=== PATIENT | female | born 1975 | race Caucasian/White ===

== ENCOUNTER 2020-09-28 15:28 | Inpatient (IN) | payer MEDICAID, OTHER ==
[~2020-09-28] VITALS: Ht 157.5 cm; Wt 108.9 kg
[2020-09-28] MEDS ORDERED: ACETAMINOPHEN 325MG TABLET PO ONE (16:15)
[2020-09-28] MEDS ORDERED: ONDANSETRON 4MG ODT PO ONE (16:15)
[2020-09-28 16:42] LABS: CLARITY URINE CLOUDY (CLEAR); COLOR URINE YELLOW (YELLOW); KETONES URINE TRACE (NEGATIVE); LEUKOCYTE ESTERASE URINE 2+ (NEGATIVE); NITRITE URINE NEGATIVE (NEGATIVE); OCCULT BLOOD URINE NEGATIVE (NEGATIVE); PROTEIN URINE TRACE (NEGATIVE); SPECIFIC GRAVITY URINE 1.026 (1.005-1.030); UROBILINOGEN URINE 0.2 E.U./dL (0.2-1.0)
[2020-09-28 17:45] LABS: EOSINOPHILS % 3.5 % (0.0-5.0); HEMOGLOBIN. 11.9 g/dL (12.0-16.0); LYMPHOCYTES % 35.5 % (20.0-50.0); MEAN CORPUSCULAR VOLUME 84.9 fL (81.0-99.0); MEAN PLATELET VOLUME 8.2 fl (7.4-10.4); MONOCYTES % 6.6 % (2.0-8.0); NEUTROPHILS % 53.4 % (40.0-76.0); PLATELET 324 x1000/uL (130-400); RED BLOOD CELL COUNT 4.24 mill/uL (4.2-5.4); RED CELL DISTRIBUTION WIDTH 14.5 % (11.6-14.6)
[2020-09-28 17:53] LABS: CHLORIDE 109 mEq/L (98-107); PROTHROMBIN TIME 10.7 sec (9.6-11.0)
[2020-09-28] MEDS ORDERED: CEFTRIAXONE 1 G PREMIX 50 ML IV ONE (19:00)
[2020-09-28] MEDS ORDERED: MORPHINE SULFATE 4 MG/ML CPJ (NOT FOR IM USE) IV STA (20:23)
[2020-09-28] MEDS ORDERED: ONDANSETRON HCL 4MG/2ML INJ IV STA (20:23)
[2020-09-28 23:51] VITALS: BP 149/68
[2020-09-29] VITALS: BP 125/61
[2020-09-29] MEDS ORDERED: ENOXAPARIN 40MG/0.4ML SYR SUBCUT SCH ×2 (01:30→09:00)
[2020-09-29] MEDS ORDERED: ACETAMINOPHEN 325MG TABLET PO PRN (01:30)
[2020-09-29] MEDS ORDERED: ONDANSETRON HCL 4MG/2ML INJ IV PRN (01:30)
[2020-09-29] MEDS ORDERED: CLONIDINE 0.1MG TABLET PO PRN (01:30)
[2020-09-29] MEDS ORDERED: NALOXONE HCL 0.4MG/ML VIAL IV PRN (01:45)
[2020-09-29] MEDS: DEXT 5%/0.45% NACL 1000ML 1,000 ML IV SCH ×2 (02:43→15:11)
[2020-09-29] MEDS: AMLODIPINE 10MG TABLET PO SCH ×2 (02:56→12:26)
[2020-09-29] MEDS: HYDROMORPHONE HCL/PF 2MG/ML CPJ IV PRN ×2 (02:57→15:06)
[2020-09-29] MEDS ORDERED: LEVOFLOXACIN 500MG PREMIX 100 ML IV SCH (03:00)
[2020-09-29 04:00] VITALS: BP 143/62
[2020-09-29] MEDS: METRONIDAZOLE 500 MG PREMIX 100 ML IV SCH ×2 (05:48→15:00)
[2020-09-29 08:00] VITALS: BP 152/51
[2020-09-29 12:00] VITALS: BP 119/55
[2020-09-29 15:39] VITALS: BP 119/55
== END 2020-09-29 17:44 | disposition home or self-care (01) ==
LOC: ER 15:28 → 6EST 20:27 → EDBEDREQ 20:29 → ENRESERV 21:26
PROVIDERS: ADMIT Hospitalist; ATTEND Hospitalist
DX: K80.00 Calculus of gallbladder with acute cholecystitis without obstruction (principal); E87.8 Other disorders of electrolyte and fluid balance, not elsewhere classified; B95.4 Other streptococcus as the cause of diseases classified elsewhere; N39.0 Urinary tract infection, site not specified; E66.01 Morbid (severe) obesity due to excess calories; Z68.41 Body mass index [BMI] 40.0-44.9, adult
CPT/HCPCS: 36415; 76700; 80053; 81003; 85025; 87077; 93970; 99285; J0696; J1170; J1650; J1956; J2270; J2405; J3490; Q0162

== ENCOUNTER 2023-06-07 11:47 | Inpatient (IN) | payer MEDICAID ==
[~2023-06-07] VITALS: Ht 154.9 cm; Wt 120.4 kg
[2023-06-07 13:29] LABS: BASOPHILS % 0.7 % (0.0-2.0); EOSINOPHILS % 3.9 % (0.0-5.0); HEMATOCRIT. 40.9 % (36.0-48.0); LYMPHOCYTES % 29.1 % (20.0-50.0); MEAN CORPUSCULAR HEMOGLOBIN 29.3 pg (28.0-32.0); MEAN CORPUSCULAR HGB CONC 34.3 g/dL (31.0-37.0); MEAN CORPUSCULAR VOLUME 85.5 fL (81.0-99.0); MEAN PLATELET VOLUME 9.1 fl (7.4-10.4); MONOCYTES % 5.4 % (2.0-8.0); NEUTROPHILS % 60.9 % (40.0-76.0); PLATELET 300 x1000/uL (130-400); RED BLOOD CELL COUNT 4.79 mill/uL (4.2-5.4); RED CELL DISTRIBUTION WIDTH 15.3 % (11.6-14.6); WHITE BLOOD COUNT 8.3 x1000/uL (4.5-11.0)
[2023-06-07 13:36] LABS: CHLORIDE 104 mEq/L (98-107); SODIUM 138 mEq/L (136-145)
[2023-06-07 13:37] LABS: CALCIUM 9.1 mg/dL (8.7-10.4); CARBON DIOXIDE 24 mEq/L (21-32)
[2023-06-07 13:41] LABS: HCG SCREEN NEGATIVE
[2023-06-07 13:42] LABS: CREATININE 0.6 mg/dL (0.6-1.0); GLUCOSE 126 mg/dL (70-105); UREA NITROGEN BLOOD 10 mg/dL (9-23)
[2023-06-07 13:44] LABS: ALANINE AMINOTRANSFERASE 68 IU/L (10-49); ALBUMIN 4.4 g/dL (3.2-4.8); ASPARTATE AMINOTRANSFERASE 51 IU/L (<34)
[2023-06-07 13:45] LABS: PROTEIN TOTAL 8.5 g/dL (6.0-8.3)
[2023-06-07] MEDS: KETOROLAC 60MG/2ML VIAL IM ONE (14:39)
[2023-06-07] MEDS: ONDANSETRON 4MG ODT PO ONE (14:39)
[2023-06-07 15:10] LABS: CLARITY URINE CLOUDY (CLEAR); COLOR URINE DARK YELLOW (YELLOW); GLUCOSE URINE NEGATIVE (NEGATIVE); KETONES URINE TRACE (NEGATIVE); LEUKOCYTE ESTERASE URINE TRACE (NEGATIVE); NITRITE URINE NEGATIVE (NEGATIVE); OCCULT BLOOD URINE NEGATIVE (NEGATIVE); PROTEIN URINE 2+ (NEGATIVE); SPECIFIC GRAVITY URINE 1.024 (1.005-1.030)
[2023-06-07 15:21] LABS: BACTERIA URINE 1+; RBC URINE 0-2 /hpf (0-2); SQUAMOUS EPITHELIAL CELL URINE 2+ /lpf (RARE/1+); YEAST URINE NONE SEEN
[2023-06-07] MEDS: CEFTRIAXONE 1GM/50ML 50 ML IV NR (15:56)
[2023-06-07] MEDS: METRONIDAZOLE 500 MG PREMIX 100 ML IV NR (16:30)
[2023-06-07] MEDS ORDERED: ACETAMINOPHEN 325MG TABLET PO PRN ×2 (17:30)
[2023-06-07] MEDS ORDERED: ONDANSETRON HCL 4MG/2ML INJ IV PRN (17:30)
[2023-06-07 18:45] VITALS: BP 127/39; PULSE 51; RESP 18; TEMP 98.6
[2023-06-07 20:00] VITALS: BP 116/48; PULSE 61; RESP 18; TEMP 97.9
[2023-06-07] MEDS: SODIUM CHLORIDE 0.9% 1,000 ML IV SCH (23:15)
[2023-06-07] MEDS: KETOROLAC 30MG/ML VIAL IV PRN (23:24)
[2023-06-07] MEDS: DIPHENHYDRAMINE 50MG/ML VIAL IV PRN (23:30)
[2023-06-08] VITALS: BP 121/50; PULSE 64; RESP 18; TEMP 97.7
[2023-06-08 04:00] VITALS: BP 101/46; PULSE 57; RESP 19; TEMP 99.5
[2023-06-08 08:00] VITALS: BP 113/52; PULSE 54; RESP 18; TEMP 97.5
[2023-06-08 15:37] VITALS: BP 119/78; PULSE 85; TEMP 97.4; O2SAT 98
== END 2023-06-08 16:50 | disposition home or self-care (01) ==
LOC: ER 11:47 → EDBEDREQ 15:22 → EDBEDREQTM 16:47 → 6EST 17:34
PROVIDERS: ADMIT Internal Medicine; ATTEND Internal Medicine
DX: K80.20 Calculus of gallbladder without cholecystitis without obstruction (principal); Z68.43 Body mass index [BMI] 50.0-59.9, adult; E66.9 Obesity, unspecified
CPT/HCPCS: 36415; 76705; 80053; 81003; 84703; 85025; 99291; J0696; J1200; J1885; J3490; Q0162